=== PATIENT | male | born 1980 | race Caucasian/White ===

== ENCOUNTER 2020-12-20 22:40 | Emergency (ER) | payer OTHER ==
[2020-12-20 23:08] VITALS: BP 145/85; PULSE 79; TEMP 98.6; BMI 30.8
[2020-12-21 01:21] LABS: BASO % 0.3 % (0-2.0); EOS % 0.3 % (0-4.5); HEMOGLOBIN 14.9 GM/dL (11.7-16.9); LYMPH % 17.5 % (8-40); MCHC 33.9 g/dl (32.0-35.9); MEAN CELL VOLUME 85.5 fl (80-96); MEAN PLT VOLUME 8.3 fl (7.5-11.1); MONO % 6.1 % (3.8-10.2); NEUT % 75.8 % (42.8-82.8); PLATELET COUNT 263 K/MM3 (134-434); RBC 5.15 M/mm3 (4.00-5.60); RDW 13.6 % (11.9-15.9); WHITE BLOOD COUNT 8.7 K/mm3 (4.0-10.0)
[2020-12-21 01:38] LABS: CHLORIDE 104 mmol/L (98-107); POTASSIUM 4.1 mmol/L (3.5-5.1); SODIUM 139 mmol/L (136-145)
[2020-12-21 01:41] LABS: CALCIUM 9.2 mg/dL (8.5-10.1)
[2020-12-21 01:42] LABS: ANION GAP 9 MMOL/L (8-16); BLOOD UREA NITROGEN 13.1 mg/dL (7-18); CO2 26 mmol/L (21-32); GLUCOSE,RANDOM 105 mg/dL (74-106)
[2020-12-21 01:45] LABS: SGOT/AST 25 U/L (15-37); SGPT/ALT 52 U/L (13-61)
[2020-12-21 01:46] LABS: BILIRUBIN,TOTAL 0.3 mg/dL (0.2-1)
[2020-12-21 01:47] LABS: TOT PROT 8.6 g/dl (6.4-8.2)
[2020-12-21 01:48] LABS: ALK PHOS 55 U/L (45-117)
== END 2020-12-21 03:52 | disposition home or self-care (01) ==
LOC: JER 22:40
DX: R07.89 Other chest pain (principal); U07.1 COVID-19
CPT/HCPCS: 36415; 71045-TC-FY; 80053; 82550; 84484; 85025; 93005; 93010; 99284-25

== ENCOUNTER 2021-05-21 09:30 | Emergency (ER) | payer OTHER ==
[2021-05-21 09:34] VITALS: BP 139/77; PULSE 75; TEMP 98.2; BMI 29.5
[2021-05-21] MEDS ORDERED: KETOROLAC TROMETHAMINE 30 MG/1 ML VIAL IM ONE (10:17)
[2021-05-21] MEDS ORDERED: METHOCARBAMOL 500 MG TABLET PO ONE (10:17)
[2021-05-21] MEDS ORDERED: KETOROLAC TROMETHAMINE 30 MG/1 ML VIAL ONE (10:22)
[2021-05-21] MEDS ORDERED: METHOCARBAMOL 500 MG TABLET ONE (10:22)
== END 2021-05-21 11:29 | disposition home or self-care (01) ==
LOC: JERFT 09:30
PROC: 3E023GC Introduction of Other Therapeutic Substance into Muscle, Percutaneous Approach (ICD-10-PCS; principal; 2021-05-21)
DX: S39.012A Strain of muscle, fascia and tendon of lower back, initial encounter (principal); M62.830 Muscle spasm of back; X50.0XXA Overexertion from strenuous movement or load, initial encounter
CPT/HCPCS: 99284-25